=== PATIENT | female | born 1965 | race Caucasian/White ===

== ENCOUNTER 2021-09-22 20:09 | Emergency (ER) | payer MEDICARE, SELFPAY ==
[2021-09-22 20:11] VITALS: BP 151/86; PULSE 116; RESP 16; TEMP 37.3; O2SAT 93; BMI 31.1
[2021-09-22 20:19] VITALS: BP 151/86; PULSE 116; RESP 16; TEMP 37.3; O2SAT 93
[2021-09-22] MEDS: Ondansetron ODT 4 MG Tablet PO (20:27)
--- NOTE | 2021-09-22 20:33 | RAD_ITS ---
STUDY: X-RAY CHEST REASON FOR EXAM: Female, 56 years old. SOB TECHNIQUE: Frontal view COMPARISON: None. FINDINGS: The lungs are expanded. Mild interstitial prominence with mild patchy infiltrates. Normal size heart. Normal mediastinum and toñito. Normal visualized pulmonary arteries. Normal visualized aortic arch and descending thoracic aorta. Degenerative changes of the thoracic spine. Degenerative changes at the shoulders. There is no demonstrated abnormality of the visualized soft tissue structures of the upper abdomen. RAD/Chest 1 View IMPRESSION: Mild interstitial prominence with mild patchy infiltrates. Electronically Signed: Yuriy Quevedo DO at 21:39 EST Tel [phone], Service support ,
[2021-09-22 20:34] LABS: Absolute Lymphocyte Count 0.61 X10^3/uL (0.83-4.51); Absolute Neutrophil Count 3.7 X10^3/uL (2.0-7.7); Hemoglobin 13.9 g/dL (12.0-15.0); Lymphocyte # 0.61 X10^3/ul (0.83-4.51); Lymphocyte % 13.3 % (19-41); Mean Corp Hgb Conc 33.1 g/dL (32-36); Mean Corpuscular Hgb 30.2 pg (27.0-32.0); Mean Corpuscular Volume 91.3 fL (81-99); Monocyte# 0.27 X10^3/uL; Monocyte% 5.9 % (0-10); NRBC Flagged by Analyzer 0 % (0-5); Neutrophil # 3.69 X10^3/uL (2.7-7.7); Neutrophil % 80.4 % (47-70); Platelet Count 199 K/mm3 (150-450); RBC Distribution Width CV 12.1 % (11.6-14.6); RBC Distribution Width SD 40.8 fl (35.1-43.9); White Blood Count 4.6 K/mm3 (4.4-11.0)
[2021-09-22 20:48] LABS: Anion Gap 9 (5-15); BUN 4 mg/dL (7-18); BUN/Creat Ratio 4.8 RATIO (10-20); Calcium,Total 8.5 mg/dL (8.5-10.1); Chloride 103 mmol/L (98-107); Creatinine, Serum 0.83 mg/dL (0.55-1.02); EST Glomerular Filtration Rate 76 mL/min (>60); Est Glom Filt Rate - Afr Amer 92 mL/min (>60); Estimated Creatinine Clearance 57.11 ml/min; Glucose 122 mg/dL (74-106); Potassium 2.9 mmol/L (3.5-5.1); Sodium Level 141 mmol/L (136-145)
[2021-09-22 21:16] LABS: Probe Check PASS
--- NOTE | 2021-09-22 22:45 | EX.ED.VIS.UR ---
HPI HPI - URI History of Present Illness Chief Complaint: Shortness of Breath Informant: patient Onset/Context/Timing Onset: Days Context: Gradual Onset Timing: Continuous Current Severity: Mild Maximum Severity: Mild Associated Symptoms Associated Symptoms: Positive for Nasal Congestion, Myalgias, Nausea, Vomiting, Diarrhea, Shortness of Breath and Nonproductive cough; Negative for Hemoptysis and Productive Cough Narrative Narrative: 56-year-old female no past medical history. Currently on no medications. Was at a multiple people came down with Covid and she thinks she has it now. Has had intermittent nausea and vomiting. Mild diarrhea. No dysuria. Nonproductive cough. Body aches. She is unvaccinated. Prior similar symptoms: No Recent Illness/Hospitalization: No ROS ROS ED ROS Narrative Nausea, vomiting, diarrhea, fever, chills, body aches and cough. Review of Systems ROS Unobtainable: Denies due to encephalopathy Constitutional Constitutional ED: Reports chills, fever(s) and subjective ENT ENT ED: Reports rhinorrhea; Denies ear pain or sore throat Cardiovascular Cardiovascular: Denies chest pain Respiratory/Chest Respiratory/Chest: Reports cough and dyspnea Gastrointestinal Gastrointestinal: Reports diarrhea, nausea and vomiting; Denies abdominal pain Genitourinary Genitourinary ED: Denies dysuria Musculoskeletal Musculoskeletal: Reports arthralgias and myalgias Integumentary Denies rash Neurologic Neurologic: Denies headache(s) Psychiatric Psychiatric: Denies depression Endocrine Endocrinology: Denies polyuria Hematologic/Lymphatic Hematologic/Lymphatic: Denies easy bruising Allergic/Immunologic Allergic/Immunologic ED: Denies urticaria PFSH PFSH Medical History no medical history no medical history Home Medications dexamethasone [Decadron] 6 mg PO DAILY 10 Days #10 tab 09/22/21 [Rx Last Taken Unknown] ondansetron 4 mg PO Q6H PRN #10 tab 09/22/21 [Rx Last Taken Unknown] Allergy/AdvReac Type Severity Reaction Status Date / Time No Known Allergies Allergy Verified 09/22/21 20:14 Social History Smoking Status: Never smoker EXAM Physical Exam Narrative Exam Narrative: Middle-aged female no acute distress vital signs stable afebrile. Pulse ox 9 3% on room air. Patient does look septic or toxic does look dehydrated. HEENT exam dry extremities. Neck nontender no meningismus. Lungs clear to auscultation bilaterally. Heart regular rhythm no murmur. Rate about 110. Abdomen soft nontender normal bowel sounds no peritoneal signs. Moving all 4 extremities. Nontender. No edema. Neurologically patient awake alert no focal motor deficits. Const Vital Signs: 09/22/21 20:11 09/22/21 20:19 Temperature 99.2 F H 99.2 F H Temperature Source Temporal Temporal Pulse Rate 116 H 116 H Respiratory Rate 16 16 Blood Pressure 151/86 H 151/86 H Blood Pressure Mean 107 107 Pulse Ox 93 93 Oxygen Delivery Method Room Air Room Air Positive well nourished, well developed and obese; Negative for cachectic or contractures General Appearance ED: well developed and NAD; Negative for cachectic, contractures, cyanotic, diaphoretic or pallor Nutritional Appearance: obese; Negative for cachectic HEENT Reports dry mucous membranes normocephalic and atraumatic Mouth ED: Yes dry mucous membranes Mouth: dry mucous membranes Eyes PERRL and EOMs intact bilaterally Neck no lymphadenopathy, supple, no meningeal signs and no JVD General: Negative for anterior neck swelling or lymphadenopathy Resp normal respiratory effort and clear to auscultation bilaterally Auscultation: Negative for rales, rhonchi or wheezes Cardio S1 normal heart sound, S2 normal heart sound and no murmurs Rate: tachycardic Rhythm: regular rhythm GI non-tender, non-distended and no masses Auscultation: normoactive bowel sounds Palpation: soft; Negative for tender or guarding Back/Spine no CVA tenderness and normal ROM General Back: Negative for CVA tenderness Cervical Spine: Negative for cervical spine tenderness Extremity normal to inspection and full ROM General Extremety ED: Negative for cyanosis or tenderness General Extremity: Negative for cyanosis Neuro oriented x3 Sensorium / Orientation: alert, oriented to person, oriented to place and oriented to time; Negative for orientation impaired, lethargic or stuporous Motor Exam: strength 5/5 throughout Psych mental status grossly normal Mood & Affect: Negative for depressed Skin General Skin Exam: Negative for jaundice or pallor Lesions: no lesions Rashes: no rashes MDM MDM MDM Narrative Medical decision making narrative: 56-year-old on day 11 of Covid. Clinically is dehydrated be treated with IV fluids and IV Decadron. Nurses already gave her p.o. Zofran. Lab Data Attestation: I reviewed the patient's lab results. Lab results narrative: Hemoglobin 13. Electrolytes potassium 3.9. Gap of 9 normal BUN and creatinine. Glucose 122. Covid positive. Chest x-ray consistent with Covid pneumonitis. Labs: Laboratory Results - last 24 hr 09/22/21 09/22/21 09/22/21 20:16 20:25 20:25 WBC 4.6 RBC 4.60 Hgb 13.9 Hct 42.0 MCV 91.3 MCH 30.2 MCHC 33.1 RDW Std Deviation 40.8 RDW Coeff of Monica 12.1 Plt Count 199 MPV 10.0 Immature Gran % (Auto) 0.400 Neut % (Auto) 80.4 H Lymph % (Auto) 13.3 L [place] % (Auto) 5.9 Eos % (Auto) 0.0 Baso % (Auto) 0.0 Absolute Neuts (auto) 3.7 Absolute Lymphs (auto) 0.61 L Nucleated RBC % 0 Sodium 141 Potassium 2.9 L Chloride 103 Carbon Dioxide 29.0 Anion Gap 9 BUN 4 L Creatinine 0.83 Estim Creat Clear Calc 57.11 Est GFR (MDRD) Af Amer 92 Est GFR (MDRD) Non-Af 76 BUN/Creatinine Ratio 4.8 L Glucose 122 H Calcium 8.5 COVID-19 ([place]) Positive Radiography Diagnostic Testing: Clinical Impression(s) from Imaging Studies Chest X-Ray 09/22/21 20:33 IMPRESSION: Mild interstitial prominence with mild patchy infiltrates. Electronically Signed: Yuriy Quevedo DO at 21:39 EST Tel [phone], Service support , Chest x-ray, single view portable interpreted by myself and the radiologist as Covid pneumonitis. Discharge Plan Triage Chief Complaint: Shortness of Breath ED Provider: Derrek Rodriguez Dx/Rx/DC Orders Clinical Impression: COVID-19 Instructions: Human Coronaviruses Prescriptions: New dexamethasone [Decadron] 6 mg tablet 6 mg PO DAILY 10 Days Qty: 10 RF: 0 ondansetron 4 mg tablet,disintegrating 4 mg PO Q6H PRN (Reason: nausea and vomiting) Qty: 10 RF: 0 Primary Care Provider: Care Physician,No Primary Referrals: Kuldip Heath MD [STAFF PHYSICIAN] - 1 Week if not improving Care Physician,No Primary [Primary Care Provider] - Activity Restrictions/Additional Instructions: Plenty of fluids and rest. Motrin and Tylenol for body aches and fever. Zofran as needed for nausea. Decadron daily. Follow-up if not improving or return if a lot worse. At this time you do not need to be admitted to the hospital. Disposition Disposition: Home, Self Care
[2021-09-22] MEDS: dexAMETHasone 10 MG/ML Vial IV (22:59)
[2021-09-22] MEDS: 0.9% Normal Saline 1,000 ML 999 ML IV (22:59)
[2021-09-23] MEDS: Ondansetron ODT 4 MG Tablet 8 MG PO (00:23)
[2021-09-23 00:25] VITALS: BP 140/74; PULSE 87; RESP 16; O2SAT 96
== END 2021-09-23 00:26 | disposition home or self-care (01) ==
LOC: ED 22:53
PROVIDERS: Emergency Provider Emergency Medicine
DX: U07.1 COVID-19 (principal); E66.9 Obesity, unspecified
CPT/HCPCS: 71045; 80048; 85025; 87635; 96374; 99283; J7030; U0005; A4216; U0003

== ENCOUNTER 2021-10-12 08:52 | Emergency (ER) | payer MEDICARE, SELFPAY ==
[2021-10-12 08:54] VITALS: BP 165/90; PULSE 126; RESP 18; TEMP 36.7; O2SAT 97; BMI 31.6
[2021-10-12 09:01] VITALS: BP 141/93; PULSE 113; RESP 22
--- NOTE | 2021-10-12 09:10 | EKG12_ITS ---
Test Reason : PALPS Blood Pressure : / mmHG Vent. Rate : 117 BPM Atrial Rate : 117 BPM P-R Int : 142 ms QRS Dur : 074 ms QT Int : 306 ms P-R-T Axes : 057 013 026 degrees QTc Int : 426 ms Sinus tachycardia Otherwise normal ECG Confirmed by CLINTON WATSON, SHEREE ([id number]), editorial clerk HUBERT LAFLEUR ([id number]) on 10/14/2021 9:54:42 AM Referred By: VÍCTOR Confirmed By:SHEREE ALONZO MD
--- NOTE | 2021-10-12 09:11 | EDS_ITS ---
HPI History of Present Illness Chief Complaint: Palpitations Informant: patient Narrative Narrative: 56-year-old female presents the emergency room with palpitations. Patient states that she had Covid and was cleared October 03. Now she notes facial pain and feels that she has a sinus infection but denies any drainage. She notes that for the past couple evenings and nights she has felt her heart racing. She went to urgent care was referred here. Patient notes continued fatigue since her Covid diagnosis. She notes continued dyspnea. PFSH PFSH Home Medications NK 10/12/21 [History Last Taken Unknown] Allergy/AdvReac Type Severity Reaction Status Date / Time No Known Allergies Allergy Verified 10/12/21 08:54 Surgical History History of hernia repair Social History (Updated 10/12/21 @ 09:[address] Santo Thompson DO) current gender identity: female Smoking Status: Never smoker ROS ROS ED ROS Narrative Fatigue Constitutional Constitutional ED: Denies chills, fever(s) or weight loss Eyes Eyes: Denies change in vision or diplopia ENT ENT ED: Reports other Details: Facial pain ; Denies ear pain, rhinorrhea or sore throat Cardiovascular Cardiovascular: Reports palpitations; Denies chest pain, orthopnea or racing heartbeat Respiratory/Chest Respiratory/Chest: Reports cough and dyspnea; Denies orthopnea Gastrointestinal Gastrointestinal: Denies abdominal pain, diarrhea, nausea or vomiting Genitourinary Genitourinary ED: Denies dysuria, hematuria or urinary frequency Musculoskeletal Musculoskeletal: Denies arthralgias or myalgias Integumentary Denies abscess or rash Neurologic Neurologic: Denies headache(s) or weakness Psychiatric Psychiatric: Denies anxiety, depression, suicidal ideation or suicidal thoughts Endocrine Endocrinology: Denies polydipsia, polyphagia or polyuria Allergic/Immunologic Allergic/Immunologic ED: Denies mouth swelling, tongue swelling or urticaria EXAM Physical Exam Const Vital Signs: 10/12/21 08:54 10/12/21 08:58 10/12/21 09:01 Temperature 98.1 F Temperature Source Temporal Pulse Rate 126 H 113 H Respiratory Rate 18 22 H Respiratory Effort Normal Non-Labored Respiratory Pattern Normal Blood Pressure 165/90 H 141/93 H Blood Pressure Mean 115 109 Pulse Ox 97 Oxygen Delivery Method Room Air Room Air 10/12/21 09:30 12/26/21 10:15 Temperature Temperature Source Pulse Rate 116 H 102 H Respiratory Rate 24 H 21 H Respiratory Effort Respiratory Pattern Blood Pressure 148/88 H 136/90 H Blood Pressure Mean 108 105 Pulse Ox Oxygen Delivery Method Room Air Positive well nourished and well developed General Appearance ED: well developed HEENT Reports normocephalic, head/scalp atraumatic, TM's clear and moist mucous membranes tenderness; Negative for trauma Tympanic Membrane ED: Yes TM's clear Eyes PERRL and EOMs intact bilaterally Neck no lymphadenopathy, supple and no JVD Resp normal respiratory effort and clear to auscultation bilaterally Cardio regular rate and no murmurs Rate: tachycardic GI normal to inspection, nondistended, normoactive bowel sounds and non-tender Palpation: soft Back/Spine no CVA tenderness and normal ROM Extremity normal to inspection General Extremety ED: Negative for edema General Extremity: Negative for edema Neuro oriented x3 and CN's II-XII intact bilaterally Sensorium / Orientation: alert Motor Exam: strength 5/5 throughout Psych mental status grossly normal Mood & Affect: Negative for depressed or tearful Skin no rashes or lesions noted and no wounds MDM MDM MDM Narrative Medical decision making narrative: White count 11.2. TSH is normal. Normal creatinine. Her D-dimer is elevated 1.89. Therefore CTA of the chest was ordered which is negative for pulmonary embolism but does demonstrate continued pneumonitis. At this point I think the patient can be discharged home. I think the tachycardia is most likely related to her Covid. Her facial pressure is most likely viral sinusitis. Lab Data Attestation: I reviewed the patient's lab results. Labs: Laboratory Results - last 24 hr 10/12/21 10/12/21 10/12/21 09:23 09:23 09:23 WBC 11.2 H RBC 4.14 L Hgb 12.8 Hct 38.6 MCV 93.2 MCH 30.9 MCHC 33.2 RDW Std Deviation 41.9 RDW Coeff of Monica 12.3 Plt Count 274 MPV 9.3 Immature Gran % (Auto) 0.400 Neut % (Auto) 82.1 H Lymph % (Auto) 7.4 L [place] % (Auto) 9.7 Eos % (Auto) 0.0 Baso % (Auto) 0.4 Absolute Neuts (auto) 9.2 H Absolute Lymphs (auto) 0.82 L Nucleated RBC % 0 D-Dimer Quant (PE/DVT) 1.89 H* Sodium 143 Potassium 3.5 Chloride 111 H Carbon Dioxide 24.0 Anion Gap 8 BUN 3 L Creatinine 0.90 Estim Creat Clear Calc 52.67 Est GFR (MDRD) Af Amer 83 Est GFR (MDRD) Non-Af 68 BUN/Creatinine Ratio 3.3 L Glucose 115 H Calcium 8.7 Magnesium 2.0 Total Bilirubin 0.30 AST 17 ALT 31 Alkaline Phosphatase 140 H Troponin I High Sens 4 Total Protein 6.9 Albumin 2.9 L Globulin 4.0 Albumin/Globulin Ratio 0.7 L TSH 1.40 Radiography Diagnostic Testing: Clinical Impression(s) from Imaging Studies Chest X-Ray 10/12/21 09:14 IMPRESSION: Bilateral patchy pneumonia. Electronically Signed: Curtis Barragan MD at 10:45 EST Tel , Service support , Chest CTA 10/12/21 09:52 IMPRESSION: 1. No CT evidence of pulmonary embolism. 2. Mild bilateral subsegmental atelectasis or pneumonitis. Commonly reported imaging features of Covid 19 pneumonia are present. Other processes such as influenza pneumonia and organizing pneumonia from drug toxicity and connective tissue disease can cause a similar imaging pattern. Electronically Signed: Curtis Barragan MD at 11:59 EST Tel , Service support , EKG Initial EKG: Attestation: I personally reviewed and interpreted this EKG as follows: Comments: Sinus tachycardia with a ventricular rate of 117 bpm Discharge Plan Triage Chief Complaint: Palpitations Other Complaint: Dizziness ED Provider: Santo Thompson Dx/Rx/DC Orders Clinical Impression: COVID-19, Sinusitis, Sinus tachycardia Instructions: Coronavirus Disease 2019 (COVID-19): Caring for Yourself or Others, ED Sinusitis (No Antibiotics) Prescriptions: No Action NK RF: 0 Primary Care Provider: Care Physician,No Primary Referrals: Care Physician,No Primary [Primary Care Provider] - Stevo Ochoa COMPLETION ENGINEER, COMPLETION ENGINEER-C [Nurse Practitioner] - As Needed (for primary care) Disposition Disposition: Home, Self Care
--- NOTE | 2021-10-12 09:14 | RAD_ITS ---
STUDY: X-RAY CHEST REASON FOR EXAM: Female, 56 years old. cough TECHNIQUE: Single AP portable view of the chest. COMPARISON: 09/22/2021 FINDINGS: Patchy alveolar opacities in both lungs consistent with bilateral pneumonia. There is no demonstrated pleural abnormality. Normal size heart. Normal mediastinum and toñito. Normal visualized pulmonary arteries. Normal visualized aortic arch and descending thoracic aorta. Normal visualized thoracic spine. Normal visualized ribs, clavicles, and shoulders. There is no demonstrated abnormality of the visualized soft tissue structures of the upper abdomen. RAD/Chest 1 View (Portable) IMPRESSION: Bilateral patchy pneumonia. Electronically Signed: Curtis Barragan MD at 10:45 EST Tel , Service support ,
[2021-10-12 09:30] VITALS: BP 148/88; PULSE 116; RESP 24
[2021-10-12 09:35] LABS: Absolute Lymphocyte Count 0.82 X10^3/uL (0.83-4.51); Absolute Neutrophil Count 9.2 X10^3/uL (2.0-7.7); Basophil# 0.04 X10^3/uL; Basophil% 0.4 % (0-1); Hematocrit 38.6 % (37-47); Hemoglobin 12.8 g/dL (12.0-15.0); Lymphocyte # 0.82 X10^3/ul (0.83-4.51); Lymphocyte % 7.4 % (19-41); Mean Corp Hgb Conc 33.2 g/dL (32-36); Mean Corpuscular Hgb 30.9 pg (27.0-32.0); Mean Corpuscular Volume 93.2 fL (81-99); Mean Platelet Vol. 9.3 fl (6.2-12.0); Monocyte# 1.08 X10^3/uL; Monocyte% 9.7 % (0-10); NRBC Flagged by Analyzer 0 % (0-5); Neutrophil # 9.17 X10^3/uL (2.7-7.7); Neutrophil % 82.1 % (47-70); Platelet Count 274 K/mm3 (150-450); RBC Distribution Width CV 12.3 % (11.6-14.6); RBC Distribution Width SD 41.9 fl (35.1-43.9); Red Blood Count 4.14 M/mm3 (4.2-5.4); White Blood Count 11.2 K/mm3 (4.4-11.0)
[2021-10-12 09:52] LABS: D-Dimer Quantitative (DVT/PE) 1.89 FEU/ug/m (0.27-0.49)
--- NOTE | 2021-10-12 09:52 | CT_ITS ---
STUDY: CTA CHEST REASON FOR EXAM: Female, 56 years old. pulmonary embolism elevated d dimer RADIATION DOSAGE (If Supplied By Facility): CTDIvol = ( 9.73 ) mGy, DLP = ( 329.26 ) mGycm TECHNIQUE: The examination was performed with the intravenous administration of IV 100mL [id number]-[id number]. Post-processing of the angiographic images was performed, with multiplanar reformation and 3D reconstruction. Individualized dose optimization techniques were used for this CT. COMPARISON: Chest x-ray earlier today FINDINGS: Normal enhancement of the main pulmonary artery and right and left pulmonary arteries. Normal enhancement of the bilateral peripheral pulmonary arteries. There is no demonstrated pulmonary embolism. Normal thoracic aorta and visualized great vessels. There is no demonstrated aortic dissection. Normal heart and pericardium. Normal mediastinum. Normal hilar regions. Normal visualized trachea and bronchi. The lungs are well expanded. Bilateral patchy groundglass opacities consistent with subsegmental atelectasis or pneumonitis. Normal pleura. Normal chest wall structures. Normal osseous structures. Normal visualized upper abdomen. CT/CTA Chest W/WO Contrast IMPRESSION: 1. No CT evidence of pulmonary embolism. 2. Mild bilateral subsegmental atelectasis or pneumonitis. Commonly reported imaging features of Covid 19 pneumonia are present. Other processes such as influenza pneumonia and organizing pneumonia from drug toxicity and connective tissue disease can cause a similar imaging pattern. Electronically Signed: Curtis Barragan MD at 11:59 EST Tel , Service support ,
[2021-10-12 09:59] LABS: ALB/GLOB Ratio 0.7 RATIO (0.9-2.4); AST(SGOT) 17 U/L (15-37); Alanine Aminotransfer ALT/SGPT 31 U/L (13-56); Albumin, Serum 2.9 g/dL (3.2-5.0); Alkaline Phosphatase 140 U/L (45-117); Anion Gap 8 (5-15); BUN 3 mg/dL (7-18); BUN/Creat Ratio 3.3 RATIO (10-20); Calcium,Total 8.7 mg/dL (8.5-10.1); Chloride 111 mmol/L (98-107); EST Glomerular Filtration Rate 68 mL/min (>60); Est Glom Filt Rate - Afr Amer 83 mL/min (>60); Estimated Creatinine Clearance 52.67 ml/min; Glucose 115 mg/dL (74-106); Potassium 3.5 mmol/L (3.5-5.1); Protein, Total 6.9 g/dL (6.4-8.2); Sodium Level 143 mmol/L (136-145); Troponin-I HS 4 pg/mL (3.0-54.0)
[2021-10-12 10:15] VITALS: BP 136/90; PULSE 102; RESP 21
[2021-10-12 12:40] VITALS: O2SAT 97
== END 2021-10-12 12:41 | disposition home or self-care (01) ==
PROVIDERS: Emergency Provider Emergency Medicine
DX: U07.1 COVID-19 (principal); J12.82 Pneumonia due to coronavirus disease 2019; J32.9 Chronic sinusitis, unspecified; R00.0 Tachycardia, unspecified
CPT/HCPCS: 71045; 71275; 80053; 83735; 84443; 84484; 85025; 85379; 93005; 99284; Q9967; A4216

== ENCOUNTER 2023-07-21 19:08 | Emergency (ER) | payer BC, SELFPAY ==
[2023-07-21 19:09] VITALS: BP 152/94; PULSE 114; RESP 15; TEMP 37.1; O2SAT 98; BMI 31.9
[2023-07-21 19:36] VITALS: PULSE 105
--- NOTE | 2023-07-21 20:16 | EDS_ITS ---
HPI History of Present Illness Chief Complaint: Chest Pain Informant: patient Onset/Context/Timing Onset: Yesterday Activity at onset: sudden Timing: Continuous Quality: Positive for Heaviness and Tightness Location: Left Chest and - (Neck) Worsened By: Nothing Relieved By: Nothing Associated Symptoms: Positive for Nausea, Lightheadedness and Palpitations; Negative for Vomiting, Diaphoresis, Dyspnea, Cough, Fever or Acid Reflux Narrative Narrative: Patient presents with chest pain that began yesterday. Patient states it came on suddenly. Patient states she was walking around to [place] today when it began. Patient states her pain is over the left upper chest and radiates into her left neck. Patient describes it as a heaviness in her chest and tightness in her neck. Patient states she gets some dizziness and lightheadedness with t his. Patient states this is worse with sitting and standing. Patient admits to some nausea but denies any vomiting. Patient admits to some palpitations. Patient denies any shortness of breath or cough. Patient denies any cardiac or PE risk factors. CVD Risk Factors: Negative for Hypertension, Diabetes, Hypercholesterolemia, Family History 1' </=55 or Smoking PE Risk Factors: Negative for Recent Travel/Surgery, Recent Immobilization, Prior DVT or PE, Cancer or OCP + Smoking + >/=35 PFSH PFSH Medical History no medical history no medical history Home Medications NK 10/12/21 [History Last Taken Unknown] Allergy/AdvReac Type Severity Reaction Status Date / Time Sulfa (Sulfonamide AdvReac Rash Verified 07/21/23 19:13 Antibiotics) COTTON SEED OIL Allergy Intermediate Vomiting Uncoded 07/21/23 19:13 Surgical History History of hernia repair Social History Smoking Status: Never smoker ROS ROS ED Constitutional Constitutional ED: Denies chills or fever(s) Eyes Eyes: Denies blurry vision or change in vision ENT ENT ED: Denies rhinorrhea or sore throat Cardiovascular Cardiovascular: Reports chest pain and palpitations Respiratory/Chest Respiratory/Chest: Denies cough or dyspnea Gastrointestinal Gastrointestinal: Reports nausea; Denies abdominal pain or vomiting Genitourinary Genitourinary ED: Denies dysuria or hematuria Musculoskeletal Musculoskeletal: Reports neck pain; Denies back pain Integumentary Denies abscess or rash Neurologic Neurologic: Reports headache(s); Denies weakness Allergic/Immunologic Allergic/Immunologic ED: Denies mouth swelling or urticaria EXAM Physical Exam Const Vital Signs: 07/21/23 19:09 07/21/23 19:36 07/21/23 20:51 Temperature 98.7 F Temperature Source Temporal Pulse Rate 114 H 105 H 100 Respiratory Rate 15 15 Blood Pressure 152/94 H Blood Pressure Mean 113 Pulse Ox 98 99 Oxygen Delivery Method Room Air Room Air 07/21/23 20:51 Temperature Temperature Source Pulse Rate Respiratory Rate Blood Pressure Blood Pressure Mean Pulse Ox Oxygen Delivery Method Room Air Positive well nourished, well developed and obese General Appearance ED: well developed and NAD Nutritional Appearance: obese HEENT normocephalic and atraumatic Eyes PERRL and EOMs intact bilaterally Neck supple and no JVD Chest Wall palpation of chest normal Resp normal respiratory effort and clear to auscultation bilaterally Effort and Inspection: Negative for respiratory distress Cardio regular rate, regular rhythm and no murmurs GI normal to inspection, nondistended, normoactive bowel sounds, soft to palpation, non-tender and non-distended Extremity normal to inspection General Extremety ED: Negative for edema or tenderness General Extremity: Negative for edema Neuro oriented x3, CN's II-XII intact bilaterally and no sensory deficits noted Sensorium / Orientation: awake and alert Motor Exam: strength 5/5 throughout Psych mental status grossly normal Heart Score History: Slightly/Non-Suspicious ECG: Normal Age: >45 - <65 years Risk Factors: No Risk Factors Troponin: </= Normal Limit Score: 1 MDM MDM MDM Narrative Medical decision making narrative: Differential diagnosis includes cardiac dysrhythmia, cardiac ischemia, pulmonary embolism, pneumonia, electrolyte abnormality, GERD, and anxiety. Chest x-ray will be obtained to assess for pneumonia. EKG will be obtained to assess for cardiac dysrhythmia and cardiac ischemia. CBC will be obtained to assess for leukocytosis and anemia. Basic metabolic profile will be obtained to assess for electrolyte abnormality and renal function. High-sensitivity troponin will be obtained to assess for cardiac ischemia. D-dimer will be obtained to assess for pulmonary embolism. Lab Data Attestation: I reviewed the patient's lab results. Lab results narrative: CBC was reviewed. There is a mild leukocytosis of 11.1. Basic metabolic profile was reviewed. Potassium was slightly low at 3.3. The remainder was essentially within normal limits. D-dimer was reviewed and was elevated at 0.64. High-sensitivity troponin was reviewed and was normal at 4. Labs: Laboratory Results - last 24 hr 07/21/23 17:40 WBC 11.1 H RBC 4.78 Hgb 14.1 Hct 44.9 MCV 93.9 MCH 29.5 MCHC 31.4 L RDW Std Deviation 42.6 RDW Coeff of [place] 12.3 Plt Count 335 MPV 10.1 Immature Gran % (Auto) 0.300 Neut % (Auto) 74.1 H Lymph % (Auto) 16.2 L [place] % (Auto) 8.7 Eos % (Auto) 0.0 Baso % (Auto) 0.7 Absolute Neuts (auto) 8.2 H Absolute Lymphs (auto) 1.79 Nucleated RBC % 0 D-Dimer Quant (PE/DVT) 0.64 H* Sodium 142 Potassium 3.3 L Chloride 111 H Carbon Dioxide 25.0 Anion Gap 6 BUN 11 Creatinine 0.99 Estim Creat Clear Calc 46.74 Est GFR (MDRD) Af Amer 74 Est GFR (MDRD) Non-Af 61 BUN/Creatinine Ratio 11.1 Glucose 116 H Calcium 9.4 Troponin I High Sens 4 Radiography Diagnostic Testing: Clinical Impression(s) from Imaging Studies Chest X-Ray 07/21/23 20:35 IMPRESSION: No acute pulmonary finding. Electronically Signed: Patrick Eason MD at 20:47 EDT , Chest CTA 07/21/23 21:21 IMPRESSION: No pulmonary embolism. No acute pulmonary findings. Esophageal wall thickening can be seen with esophagitis. Electronically Signed: Patrick Eason MD at 22:08 EDT , Portable 1 view chest x-ray was obtained. On my independent interpretation, lung bills are clear. There is normal cardiac silhouette. Bony thorax is normal. There is no acute process noted. Radiologist also interpreted the x- ray and agrees. Because of the elevated D-dimer, CTA of the chest was obtained. There is no evidence of pulmonary embolism. There is no acute pulmonary finding. There is some esophageal wall thickening consistent with esophagitis. This was interpreted by the radiologist and was also independently reviewed by myself. EKG Initial EKG: Attestation: I personally reviewed and interpreted this EKG as follows: Interpretation: No Acute Injury Pattern and Sinus Tachycardia (106) Comments: EKG was obtained. On my independent interpretation, it showed a sinus tachycardia with a rate of 106. MD interval, QRS interval, and QTc intervals were all normal. [place] was normal. There are no acute ST or T wave changes. Prior EKG tracings: available for review Prior: Unchanged (10/12/2021) Treatment and Re-Evaluation :: Patient was given aspirin here. Patient was advised of her findings. Patient has a HEART score of 1. Patient was advised that this is low risk for acute cardiac event. Patient was instructed to follow-up with her primary care physician in 5 to 7 days. Patient was instructed to eat a bland diet. Patient was instructed return if worse in any way. Patient understood and was agreeable with the plan. All questions were answered. Discharge Plan Triage Chief Complaint: Chest Pain ED Provider: Kevin Lowe Dx/Rx/DC Orders Clinical Impression: Chest pain, Esophagitis Instructions: ED Chest Pain, Uncertain Cause Prescriptions: No Action NK Primary Care Provider: Care Physician,No Primary Referrals: Xenia Guerrier MD [Med Staff - Mailroom Supervisor] - 5-7 Days Care Physician,No Primary [Primary Care Provider] - Disposition Disposition: Home, Self Care
--- NOTE | 2023-07-21 20:23 | EKG12_ITS ---
Test Reason : CP Blood Pressure : / mmHG Vent. Rate : 106 BPM Atrial Rate : 106 BPM P-R Int : 146 ms QRS Dur : 074 ms QT Int : 318 ms P-R-T Axes : 048 002 041 degrees QTc Int : 422 ms Sinus tachycardia with Premature atrial complexes Otherwise normal ECG Confirmed by CLINTON WATSON, SHEREE ([id number]), editor index MARIAH ALEX ([id number]) on 07/27/2023 12:33:19 PM Referred By: Confirmed By:SHEREE ALONZO MD
[2023-07-21] MEDS: Aspirin 81 MG TAB.CHEW 324 MG PO (20:34)
--- NOTE | 2023-07-21 20:35 | RAD_ITS ---
INDICATION: chest pain EXAMINATION/TECHNIQUE: X-RAY - XR Chest 1 View COMPARISON: Prior study dated: 10/12/2021 FINDINGS: LINES/DEVICES: None. LUNGS: The lungs are well expanded. No consolidation, edema or effusion. No pneumothorax. MEDIASTINUM AND CARDIOVASCULAR STRUCTURES: Cardiac silhouette not enlarged. Central airways and mediastinal contour are unremarkable. BONES AND SOFT TISSUES: Unremarkable. RAD/Chest 1 View (Portable) IMPRESSION: No acute pulmonary finding. Electronically Signed: Patrick Eason MD at 20:47 EDT ,
[2023-07-21 20:47] LABS: Absolute Lymphocyte Count 1.79 X10^3/uL (0.83-4.51); Absolute Neutrophil Count 8.2 X10^3/uL (2.0-7.7); Basophil# 0.08 X10^3/uL; Basophil% 0.7 % (0-1); Hematocrit 44.9 % (37-47); Hemoglobin 14.1 g/dL (12.0-15.0); Lymphocyte # 1.79 X10^3/ul (0.83-4.51); Lymphocyte % 16.2 % (19-41); Mean Corp Hgb Conc 31.4 g/dL (32-36); Mean Corpuscular Hgb 29.5 pg (27.0-32.0); Mean Corpuscular Volume 93.9 fL (81-99); Mean Platelet Vol. 10.1 fl (6.2-12.0); Monocyte# 0.96 X10^3/uL; Monocyte% 8.7 % (0-10); NRBC Flagged by Analyzer 0 % (0-5); Neutrophil # 8.22 X10^3/uL (2.7-7.7); Neutrophil % 74.1 % (47-70); Platelet Count 335 K/mm3 (150-450); RBC Distribution Width CV 12.3 % (11.6-14.6); RBC Distribution Width SD 42.6 fl (35.1-43.9); Red Blood Count 4.78 M/mm3 (4.2-5.4); White Blood Count 11.1 K/mm3 (4.4-11.0)
[2023-07-21 20:51] VITALS: PULSE 100; RESP 15; O2SAT 99
[2023-07-21 20:57] LABS: Anion Gap 6 (5-15); BUN 11 mg/dL (7-18); BUN/Creat Ratio 11.1 RATIO (10-20); Calcium,Total 9.4 mg/dL (8.5-10.1); Chloride 111 mmol/L (98-107); Creatinine, Serum 0.99 mg/dL (0.55-1.02); EST Glomerular Filtration Rate 61 mL/min (>60); Est Glom Filt Rate - Afr Amer 74 mL/min (>60); Estimated Creatinine Clearance 46.74 ml/min; Glucose 116 mg/dL (74-106); Potassium 3.3 mmol/L (3.5-5.1); Sodium Level 142 mmol/L (136-145); Troponin-I HS 4 pg/mL (3.0-54.0)
[2023-07-21 21:18] LABS: D-Dimer Quantitative (DVT/PE) 0.64 FEU/ug/m (0.27-0.49)
--- NOTE | 2023-07-21 21:21 | CT_ITS ---
STUDY: CTA CHEST REASON FOR EXAM: Female, 58 years old. Elevated D-dimer RADIATION DOSAGE (If Supplied By Facility): CTDIvol = ( 8.55 ) mGy, DLP = ( 441.28 ) mGycm TECHNIQUE: The examination was performed with the intravenous administration of IV 100mL [id number]-[id number]. Post-processing of the angiographic images was performed, with multiplanar reformation and 3D reconstruction. Individualized dose optimization techniques were used for this CT. COMPARISON: Prior study dated: 10/12/2021 FINDINGS: PULMONARY ARTERIES: Normal enhancement of the main pulmonary artery and right and left pulmonary arteries. Normal enhancement of the bilateral peripheral pulmonary arteries. There is no demonstrated pulmonary embolism. AORTA: Normal thoracic aorta and visualized great vessels. There is no demonstrated aortic dissection. MEDIASTINUM: Normal heart and pericardium. No mediastinal lymphadenopathy. Esophageal wall thickening, especially involving the mid to distal esophagus. Normal hilar regions. LUNGS/PLEURA: Normal visualized trachea and bronchi. The lungs are well expanded. Calcified granuloma of the right upper lobe posteriorly. No consolidation. No pulmonary mass. Normal pleura. No pneumothorax. CHEST WALL: Normal chest wall structures. UPPER ABDOMEN: Normal visualized upper abdomen. OSSEOUS STRUCTURES: No acute or suspicious osseous abnormality. CT/CTA Chest W/WO Contrast IMPRESSION: No pulmonary embolism. No acute pulmonary findings. Esophageal wall thickening can be seen with esophagitis. Electronically Signed: Patrick Eason MD at 22:08 EDT ,
[2023-07-22 00:02] VITALS: BP 124/74
== END 2023-07-22 00:04 | disposition home or self-care (01) ==
PROVIDERS: Emergency Provider Emergency Medicine; Visit Provider Emergency Medicine
DX: R07.9 Chest pain, unspecified (principal); K20.90 Esophagitis, unspecified without bleeding; E66.9 Obesity, unspecified
CPT/HCPCS: 71045; 71275; 80048; 84484; 85025; 85379; 93005; 99283; Q9967; A4216